=== PATIENT | female | born 1990 | race Caucasian/White ===

== ENCOUNTER 2023-06-25 22:54 | Inpatient (IN) | payer SELFPAY ==
[2023-06-25] MEDS ORDERED: Sodium Chloride 0.9% 10 ML Syringe FLUSH PRN (23:26)
[2023-06-25] MEDS: Sodium Chloride 0.9% 1,000 ML IV SCH (23:35)
[2023-06-25] MEDS: Ondansetron 4 MG/2 ML SDV IVPUSH ONE (23:35)
[2023-06-25 23:39] LABS: HEMATOCRIT 45.6 % (37.0-47.0); HEMOGLOBIN 15.7 g/dL (11.5-16.5); MEAN CORPUSCULAR HEMOGLOBIN 31.7 pg (27.0-32.0); MEAN CORPUSCULAR HGB CONC 34.4 g/dL (31.0-35.0); MEAN CORPUSCULAR VOLUME 92 fL (76-96); MEAN PLATELET VOLUME 8.9 fL (6.0-10.0); PLATELET COUNT,PLT 343 K/uL (150-500); RED BLOOD CELL COUNT 4.96 M/uL (3.80-5.80); RED CELL DISTRIBUTION WIDTH 13.6 % (11.0-16.0)
[2023-06-25] MEDS: Ondansetron 4 MG/2 ML SDV ONE (23:40)
[2023-06-25 23:45] LABS: WHITE BLOOD CELL COUNT,WBC 21.8 K/uL (4.0-11.0)
[2023-06-25 23:47] LABS: ALBUMIN 4.3 g/dL (3.4-5.0); ANION GAP 17.4 mmol/L (5.0-15.0); BILIRUBIN TOTAL 0.4 mg/dL (0.0-1.0); BUN/CREATININE RATIO 18.4 (6-25); CALCIUM 8.9 mg/dL (8.5-10.1); CARBON DIOXIDE,CO2 23.9 mmol/L (21.0-32.0); CREATININE 0.87 mg/dL (0.55-1.02); EST CRCL DRUG DOSING (CG) 74.1 mL/min; MAGNESIUM 1.7 mg/dL (1.8-2.4); POTASSIUM,K 3.3 mmol/L (3.5-5.1); PROTEIN TOTAL,TP 8.4 g/dL (6.4-8.2)
[2023-06-26 00:08] LABS: APPEARANCE,URINE CLEAR (CLEAR); BILIRUBIN,URINE NEGATIVE (NEGATIVE); COLOR,URINE YELLOW; GLUCOSE,URINE NEGATIVE (NEGATIVE); KETONES,URINE NEGATIVE (NEGATIVE); LEUKOCYTE ESTERASE,URINE NEGATIVE (NEGATIVE); NITRITE,URINE NEGATIVE (NEGATIVE); OCCULT BLOOD,URINE TRACE-INTACT (NEGATIVE); PH,URINE 5.5 (5.0-8.0); PROTEIN,URINE 30 mg/dL (NEGATIVE); UROBILINOGEN,URINE 0.2 E.U./dL (0.2-1.0)
[2023-06-26 00:15] LABS: AMORPHOUS SEDIMENT,URINE MANY /HPF; RBC,URINE 0-5 /HPF
[2023-06-26 00:20] LABS: PLATELET COUNT ESTIMATE ADEQUATE
[2023-06-26 00:35] LABS: INFLUENZA A NAA NEGATIVE (NEGATIVE); INFLUENZA B NAA NEGATIVE (NEGATIVE); RESPIRATORY SYNCYTIAL VIR NAA NEGATIVE (NEGATIVE)
[2023-06-26 00:37] LABS: LACTIC ACID 5.8 mmol/L (0.4-2.0)
[2023-06-26 00:42] LABS: CORONAVIRUS COVID-19 NAA NEGATIVE (NEGATIVE)
[2023-06-26] MEDS: Iopamidol 612 MG/ML 100 ML Bottle IV PRN (00:54)
[2023-06-26] MEDS: Sodium Chloride 0.9% 50 ML SDV FLUSH SCH (00:54)
[2023-06-26] MEDS: Ciprofloxacin in D5W 200 ML ONE (01:36)
[2023-06-26] MEDS: Ciprofloxacin in D5W 400 MG in Premix Bag 1 BAG IV SCH (01:37)
[2023-06-26] MEDS: metroNIDAZOLE/Normal Saline 500 MG in Premix Bag 1 BAG IV SCH (02:33)
[2023-06-26] MEDS: Lactated Ringers 1,000 ML IV SCH (02:34)
[2023-06-26] MEDS: Ondansetron 4 MG/2 ML SDV IVPUSH PRN (03:45)
[2023-06-26] MEDS: Pantoprazole 40 MG Vial IVPUSH SCH (05:20)
[2023-06-26] MEDS ORDERED: Ciprofloxacin in D5W 400 MG in Premix Bag 1 BAG IV SCH (08:00)
[2023-06-26] MEDS: Acetaminophen 325 MG Tab PO PRN (08:30)
[2023-06-26] MEDS: Pantoprazole 40 MG Vial ONE (08:59)
[2023-06-26 09:31] LABS: BASOPHILS ABSOLUTE AUTO 0.03 K/uL (0.02-0.10); BASOPHILS PERCENT AUTO 0.2 % (0.0-0.5); EOSINOPHILS ABSOLUTE AUTO 0.04 K/uL (0.04-0.40); EOSINOPHILS PERCENT AUTO 0.3 % (1.0-5.0); HEMATOCRIT 34.8 % (37.0-47.0); HEMOGLOBIN 11.9 g/dL (11.5-16.5); LYMPHOCYTES ABSOLUTE AUTO 2.82 K/uL (1.50-4.00); LYMPHOCYTES PERCENT AUTO 18.9 % (20.0-40.0); MEAN CORPUSCULAR HEMOGLOBIN 31.7 pg (27.0-32.0); MEAN CORPUSCULAR HGB CONC 34.2 g/dL (31.0-35.0); MEAN CORPUSCULAR VOLUME 93 fL (76-96); MEAN PLATELET VOLUME 8.4 fL (6.0-10.0); MONOCYTES ABSOLUTE AUTO 0.93 K/uL (0.20-0.80); MONOCYTES PERCENT AUTO 6.2 % (3.0-10.0); NEUTROPHILS ABSOLUTE AUTO 11.08 K/uL (2.00-7.50); NEUTROPHILS PERCENT AUTO 74.4 % (45.0-70.0); PLATELET COUNT,PLT 239 K/uL (150-500); RED BLOOD CELL COUNT 3.75 M/uL (3.80-5.80); RED CELL DISTRIBUTION WIDTH 13.3 % (11.0-16.0); WHITE BLOOD CELL COUNT,WBC 14.9 K/uL (4.0-11.0)
[2023-06-26 09:51] LABS: ALBUMIN 2.9 g/dL (3.4-5.0); ANION GAP 10.1 mmol/L (5.0-15.0); BILIRUBIN TOTAL 0.6 mg/dL (0.0-1.0); BUN/CREATININE RATIO 16.4 (6-25); CALCIUM 7.4 mg/dL (8.5-10.1); CARBON DIOXIDE,CO2 25.2 mmol/L (21.0-32.0); CREATININE 0.73 mg/dL (0.55-1.02); EST CRCL DRUG DOSING (CG) 88.31 mL/min; POTASSIUM,K 3.3 mmol/L (3.5-5.1); PROTEIN TOTAL,TP 5.8 g/dL (6.4-8.2)
[2023-06-26] MEDS ORDERED: metroNIDAZOLE/Normal Saline 100 ML IV SCH (11:00)
[2023-06-26] MEDS: methylPREDNISolone Sodium Succinate 125 MG/2 ML SDV IVPUSH ONE (11:09)
[2023-06-26 12:49] LABS: APPEARANCE,URINE CLEAR (CLEAR); BILIRUBIN,URINE NEGATIVE (NEGATIVE); COLOR,URINE YELLOW; GLUCOSE,URINE NEGATIVE (NEGATIVE); KETONES,URINE NEGATIVE (NEGATIVE); LEUKOCYTE ESTERASE,URINE NEGATIVE (NEGATIVE); NITRITE,URINE NEGATIVE (NEGATIVE); OCCULT BLOOD,URINE NEGATIVE (NEGATIVE); PROTEIN,URINE NEGATIVE (NEGATIVE); UROBILINOGEN,URINE 0.2 E.U./dL (0.2-1.0)
[2023-06-26 12:53] LABS: EPITHELIAL CELLS,URINE MODERATE /HPF; RBC,URINE NOT SEEN /HPF; WBC,URINE 0-5 /HPF
[2023-06-26] MEDS: Acetaminophen 500 MG Tab PO SCH (14:29)
[2023-06-26] MEDS: metroNIDAZOLE/Normal Saline 100 ML IV SCH (15:59)
[2023-06-26] MEDS: EPINEPHrine 0.3 MG/0.3 ML Pen Autoinjector ONE (18:15)
[2023-06-27] MEDS: Pantoprazole 40 MG Vial IVPUSH SCH (07:36)
[2023-06-27 09:14] LABS: ALBUMIN 3.1 g/dL (3.4-5.0); ANION GAP 13.1 mmol/L (5.0-15.0); BILIRUBIN TOTAL 0.4 mg/dL (0.0-1.0); BUN/CREATININE RATIO 2.6 (6-25); CALCIUM 8.4 mg/dL (8.5-10.1); CARBON DIOXIDE,CO2 25.6 mmol/L (21.0-32.0); CREATININE 0.77 mg/dL (0.55-1.02); EST CRCL DRUG DOSING (CG) 83.73 mL/min; POTASSIUM,K 3.7 mmol/L (3.5-5.1); PROTEIN TOTAL,TP 6.2 g/dL (6.4-8.2)
[2023-06-27 09:19] LABS: HEMATOCRIT 34.9 % (37.0-47.0); HEMOGLOBIN 11.7 g/dL (11.5-16.5); LYMPHOCYTES ABSOLUTE AUTO 1.82 K/uL (1.50-4.00); LYMPHOCYTES PERCENT AUTO 12.7 % (20.0-40.0); MEAN CORPUSCULAR HEMOGLOBIN 31.8 pg (27.0-32.0); MEAN CORPUSCULAR HGB CONC 33.5 g/dL (31.0-35.0); MEAN CORPUSCULAR VOLUME 95 fL (76-96); MEAN PLATELET VOLUME 9.3 fL (6.0-10.0); MONOCYTES PERCENT AUTO 4.9 % (3.0-10.0); NEUTROPHILS ABSOLUTE AUTO 11.85 K/uL (2.00-7.50); NEUTROPHILS PERCENT AUTO 82.4 % (45.0-70.0); PLATELET COUNT,PLT 234 K/uL (150-500); RED BLOOD CELL COUNT 3.68 M/uL (3.80-5.80); RED CELL DISTRIBUTION WIDTH 13.2 % (11.0-16.0); WHITE BLOOD CELL COUNT,WBC 14.4 K/uL (4.0-11.0)
== END 2023-06-27 11:43 | disposition home or self-care (01) | DRG 392 ==
LOC: LB.ED 22:54 → LB.MS 06-26 01:30
PROVIDERS: ADMIT Surgery; ATTEND Surgery
DX: K52.9 Noninfective gastroenteritis and colitis, unspecified (principal); E86.0 Dehydration; E83.42 Hypomagnesemia; E87.6 Hypokalemia; Z88.5 Allergy status to narcotic agent; Z88.0 Allergy status to penicillin; Z90.49 Acquired absence of other specified parts of digestive tract; Z90.89 Acquired absence of other organs; Z98.51 Tubal ligation status; Z91.018 Allergy to other foods
CPT/HCPCS: 0241U; 36415; 71045; 74177; 80053; 81001; 81025; 82947; 83605; 83690; 83735; 85025; 86140; 87040; 87493; 96361; 96365; 96375; 99222; 99238; 99285-25; A9270-GY; C9113; J0744; J1836; J2405; J2930; J3475; J3490; J7030; J7120; Q9967

== ENCOUNTER 2023-07-31 06:38 | Observation (INO) | payer SELFPAY ==
[2023-07-31] MEDS: Ondansetron 4 MG/2 ML SDV IVPUSH PRN ×2 (07:24→16:10)
[2023-07-31] MEDS: Ketorolac 30 MG/ML SDV IVPUSH ONE (07:32)
[2023-07-31 07:41] LABS: BASOPHILS ABSOLUTE AUTO 0.03 K/uL (0.02-0.10); BASOPHILS PERCENT AUTO 0.3 % (0.0-0.5); EOSINOPHILS ABSOLUTE AUTO 0.01 K/uL (0.04-0.40); EOSINOPHILS PERCENT AUTO 0.1 % (1.0-5.0); HEMATOCRIT 39.5 % (37.0-47.0); HEMOGLOBIN 13.7 g/dL (11.5-16.5); LYMPHOCYTES ABSOLUTE AUTO 3.03 K/uL (1.50-4.00); LYMPHOCYTES PERCENT AUTO 26.2 % (20.0-40.0); MEAN CORPUSCULAR HEMOGLOBIN 31.9 pg (27.0-32.0); MEAN CORPUSCULAR HGB CONC 34.7 g/dL (31.0-35.0); MEAN CORPUSCULAR VOLUME 92 fL (76-96); MEAN PLATELET VOLUME 8.5 fL (6.0-10.0); MONOCYTES ABSOLUTE AUTO 0.46 K/uL (0.20-0.80); NEUTROPHILS ABSOLUTE AUTO 8.03 K/uL (2.00-7.50); NEUTROPHILS PERCENT AUTO 69.4 % (45.0-70.0); PLATELET COUNT,PLT 341 K/uL (150-500); RED CELL DISTRIBUTION WIDTH 12.8 % (11.0-16.0); WHITE BLOOD CELL COUNT,WBC 11.6 K/uL (4.0-11.0)
[2023-07-31 07:43] LABS: APPEARANCE,URINE SLIGHTLY CLOUDY (CLEAR); BILIRUBIN,URINE NEGATIVE (NEGATIVE); GLUCOSE,URINE NEGATIVE (NEGATIVE); KETONES,URINE TRACE mg/dL (NEGATIVE); LEUKOCYTE ESTERASE,URINE NEGATIVE (NEGATIVE); NITRITE,URINE NEGATIVE (NEGATIVE); OCCULT BLOOD,URINE TRACE-LYSED (NEGATIVE); PH,URINE 5.5 (5.0-8.0); PROTEIN,URINE NEGATIVE (NEGATIVE); UROBILINOGEN,URINE 0.2 E.U./dL (0.2-1.0)
[2023-07-31] MEDS: Ondansetron 4 MG/2 ML SDV ONE (07:43)
[2023-07-31] MEDS: Ketorolac 30 MG/ML SDV ONE (07:43)
[2023-07-31] MEDS: Sodium Chloride 0.9% 1,000 ML IV SCH (07:45)
[2023-07-31] MEDS: Ketorolac 60 MG/2 ML SDV IVPUSH ONE ×2 (07:48→07:50)
[2023-07-31 07:49] LABS: COLOR,URINE YELLOW; WBC,URINE NOT SEEN /HPF
[2023-07-31 07:50] LABS: EPITHELIAL CELLS,URINE FEW /HPF
[2023-07-31 07:56] LABS: ALBUMIN 3.7 g/dL (3.4-5.0); ANION GAP 19.7 mmol/L (5.0-15.0); BILIRUBIN TOTAL 0.6 mg/dL (0.0-1.0); BUN/CREATININE RATIO 18.8 (6-25); CALCIUM 7.9 mg/dL (8.5-10.1); CARBON DIOXIDE,CO2 21.4 mmol/L (21.0-32.0); CREATININE 0.85 mg/dL (0.55-1.02); EST CRCL DRUG DOSING (CG) 75.85 mL/min; POTASSIUM,K 3.1 mmol/L (3.5-5.1); PROTEIN TOTAL,TP 7.3 g/dL (6.4-8.2)
[2023-07-31] MEDS: HYDROmorphone 2 MG/ML Syringe IVPUSH ONE ×3 (08:24→15:27)
[2023-07-31] MEDS: Sodium Chloride 0.9% 50 ML SDV FLUSH ONE (08:53)
[2023-07-31] MEDS: Iopamidol 612 MG/ML 100 ML Bottle IV SCH (08:53)
[2023-07-31] MEDS: HYDROmorphone 2 MG/ML Syringe ONE (09:22)
[2023-07-31] MEDS: GI Cocktail Oral Solution 30 ML PO ONE (09:33)
[2023-07-31] MEDS: metroNIDAZOLE/Normal Saline 500 MG in Premix Bag 1 BAG IV ONE (10:15)
[2023-07-31] MEDS: Levofloxacin 500 MG Tab PO ONE (10:15)
[2023-07-31] MEDS: HYDROmorphone 2 MG/ML Syringe IVPUSH PRN (16:10)
[2023-08-01] MEDS: metroNIDAZOLE/Normal Saline 500 MG in Premix Bag 1 BAG IV SCH (00:03)
[2023-08-01] MEDS: Sodium Chloride 0.9% 10 ML Syringe FLUSH PRN (07:46)
[2023-08-01] MEDS: Sulfamethoxazole/Trimethoprim 800-160 MG Tab PO SCH (07:46)
[2023-08-01] MEDS: Potassium Chloride Riders 10 MEQ in Premix Bag 1 BAG IV ONE (10:28)
[2023-08-01] MEDS: Pantoprazole 40 MG Vial IVPUSH SCH (10:29)
[2023-08-01] MEDS: Acetaminophen/HYDROcodone 325-5 MG Tab PO PRN (20:34)
[2023-08-02 09:18] LABS: HEMATOCRIT 36.9 % (37.0-47.0); HEMOGLOBIN 12.7 g/dL (11.5-16.5); MEAN CORPUSCULAR HEMOGLOBIN 31.7 pg (27.0-32.0); MEAN CORPUSCULAR HGB CONC 34.4 g/dL (31.0-35.0); MEAN PLATELET VOLUME 8.5 fL (6.0-10.0); RED BLOOD CELL COUNT 4.01 M/uL (3.80-5.80); RED CELL DISTRIBUTION WIDTH 12.5 % (11.0-16.0); WHITE BLOOD CELL COUNT,WBC 6.1 K/uL (4.0-11.0)
[2023-08-02 09:36] LABS: A/G RATIO 1.1 (0.8-2.0); ALANINE AMINOTRANSFERASE,ALT 16 U/L (12-78); ALBUMIN 3.2 g/dL (3.4-5.0); ALKALINE PHOSPHATASE 55 U/L (46-116); ASPARTATE AMNIOTRANSFERASE,AST 21 U/L (15-37); BILIRUBIN TOTAL 0.5 mg/dL (0.0-1.0); BUN/CREATININE RATIO 5.4 (6-25); CALCIUM 8.4 mg/dL (8.5-10.1); CARBON DIOXIDE,CO2 26.4 mmol/L (21.0-32.0); CHLORIDE,CL 103 mmol/L (98-107); CREATININE 0.74 mg/dL (0.55-1.02); EST CRCL DRUG DOSING (CG) 87.12 mL/min; ESTIMATED GFR 111 mL/min (>60); GLUCOSE RANDOM 143 mg/dL (74-100); POTASSIUM,K 3.4 mmol/L (3.5-5.1); PROTEIN TOTAL,TP 6.2 g/dL (6.4-8.2); SODIUM,NA 138 mmol/L (136-145)
[2023-08-02 09:50] LABS: BLOOD UREA NITROGEN,BUN 4 mg/dL (8-26)
[2023-08-02 09:51] LABS: C-REACTIVE PROTEIN < 5.0 mg/L (<5.0)
[2023-08-02] MEDS ORDERED: Omeprazole 20 MG Cap.CR ONE (10:00)
[2023-08-02] MEDS ORDERED: metroNIDAZOLE 500 MG Tab ONE (10:00)
[2023-08-02] MEDS ORDERED: traMADol 50 MG Tab ONE (10:00)
[2023-08-02] MEDS ORDERED: Ondansetron 4 MG Tab.DIS ONE (10:00)
[2023-08-02] MEDS ORDERED: Sulfamethoxazole/Trimethoprim 800-160 MG Tab ONE (10:00)
[2023-08-02] MEDS: Omeprazole 20 MG Cap.CR ONE (16:49)
[2023-08-02] MEDS: metroNIDAZOLE 500 MG Tab ONE (16:49)
[2023-08-02] MEDS: Ondansetron 4 MG Tab.DIS ONE (16:49)
[2023-08-02] MEDS: Sulfamethoxazole/Trimethoprim 800-160 MG Tab ONE (16:49)
== END 2023-08-02 17:48 | disposition home or self-care (01) ==
LOC: LB.ED 06:38 → LB.MS 13:57
PROVIDERS: ADMIT Surgery; ATTEND Surgery
DX: K52.9 Noninfective gastroenteritis and colitis, unspecified (principal); E87.6 Hypokalemia; R11.2 Nausea with vomiting, unspecified; J45.909 Unspecified asthma, uncomplicated; F41.9 Anxiety disorder, unspecified; F32.A Depression, unspecified; E13.9 Other specified diabetes mellitus without complications; D64.9 Anemia, unspecified; Z88.8 Allergy status to other drugs, medicaments and biological substances; Z88.5 Allergy status to narcotic agent; Z88.0 Allergy status to penicillin; Z79.899 Other long term (current) drug therapy; Z91.018 Allergy to other foods; Z98.890 Other specified postprocedural states
CPT/HCPCS: 36415; 74177; 80053; 81001; 81025; 85025; 85027; 86140; 96361; 96365; 96366; 96367; 96375; 96376; 99222; 99232; 99238; 99285-25; A9270-GY; C9113; G0378; J1170; J1836; J1885; J2405; J3480; J3490; J7030; Q0162; Q9967